=== PATIENT | male | born 1935 | race Caucasian/White ===

== ENCOUNTER → 2021-07-16 | Outpatient (REF) | payer MEDICARE ==
[2021-07-16 16:32] LABS: HEMATOCRIT 43.4 % (42.0-52.0); MEAN CORPUSCULAR HEMOGLOBIN 29.1 pg (27.0-33.0); MEAN CORPUSCULAR HGB CONC 32.3 g/dl (32.0-36.5); MEAN CORPUSCULAR VOLUME 90.2 fl (80.0-96.0); PLATELET COUNT, AUTOMATED 303 10^3/uL (150-450); RED BLOOD COUNT 4.81 10^6/uL (4.30-6.10); WHITE BLOOD COUNT 10.6 10^3/uL (4.0-10.0)
[2021-07-16 18:29] LABS: ALBUMIN 3.7 GM/DL (3.2-5.2); ALT/SGPT 21 U/L (12-78); BLOOD UREA NITROGEN 19 MG/DL (7-18); CALCIUM LEVEL 9.4 MG/DL (8.8-10.2); CARBON DIOXIDE LEVEL 30 MEQ/L (21-32); CHLORIDE LEVEL 107 MEQ/L (98-107); CHOLESTEROL LEVEL 109 MG/DL (<200); CHOLESTEROL RISK RATIO 1.981 (<5); CREATININE FOR GFR 0.68 MG/DL (0.70-1.30); GLOMERULAR FILTRATION RATE > 60.0 (>35); GLUCOSE, FASTING 79 MG/DL (70-100); HDL CHOLESTEROL 55 MG/DL (>40); LDL CHOLESTEROL 39 MG/DL (<100); NON-HDL-C 54 MG/DL; POTASSIUM SERUM 4.6 MEQ/L (3.5-5.1); PREALBUMIN 17.9 MG/DL (20.0-40.0); SODIUM LEVEL 142 MEQ/L (136-145); TOTAL PROTEIN 6.9 GM/DL (6.4-8.2); TRIGLYCERIDES LEVEL 73 MG/DL (<150)
== END ==
LOC: M LABDRWCV 16:00
DX: E78.00 Pure hypercholesterolemia, unspecified (principal); R63.4 Abnormal weight loss

== ENCOUNTER 2022-04-03 19:41 | Inpatient (IN) | payer MEDICARE ==
[~2022-04-03] VITALS: Ht 177.8 cm; Wt 65.8 kg
[2022-04-03 20:45] LABS: BASO % 0.2 % (0.0-1.0); EOS # 0.1 10^3/uL (0.0-0.5); EOS % 0.3 % (0.0-3.0); HEMATOCRIT 37.3 % (42.0-52.0); HEMOGLOBIN 11.9 g/dl (13.5-17.5); LYMPH % 5.3 % (24.0-44.0); MEAN CORPUSCULAR HEMOGLOBIN 29.4 pg (27.0-33.0); MEAN CORPUSCULAR HGB CONC 31.9 g/dl (32.0-36.5); MEAN CORPUSCULAR VOLUME 92.1 fl (80.0-96.0); MONO # 1.4 10^3/uL (0.0-0.8); MONO % 7.7 % (2.0-8.0); NEUTROPHILS # 15.7 10^3/uL (1.5-8.5); NEUTROPHILS % 85.8 % (36.0-66.0); PLATELET COUNT, AUTOMATED 293 10^3/uL (150-450); RED BLOOD COUNT 4.05 10^6/uL (4.30-6.10); WHITE BLOOD COUNT 18.3 10^3/uL (4.0-10.0)
[2022-04-03] MEDS: SENNA 8.6 MG TAB (SENOKOT) PO SCH (21:00)
[2022-04-03] MEDS: SINEMET**CR** 25/100 TABCR PO SCH (21:00)
[2022-04-03 21:08] LABS: MAGNESIUM LEVEL 1.9 MG/DL (1.8-2.4)
[2022-04-03 21:09] LABS: BLOOD UREA NITROGEN 34 MG/DL (9-23); CALCIUM LEVEL 8.6 MG/DL (8.3-10.6); CARBON DIOXIDE LEVEL 27 MMOL/L (20-31); CHLORIDE LEVEL 105 MMOL/L (98-107); CREATININE FOR GFR 0.58 MG/DL (0.70-1.30); GLOMERULAR FILTRATION RATE > 60.0 (>35); GLUCOSE, FASTING 109 MG/DL (74-106); POTASSIUM SERUM 4.2 MMOL/L (3.5-5.1); SODIUM LEVEL 141 MMOL/L (136-145)
[2022-04-03 21:11] LABS: FREE T4 1.13 NG/DL (0.89-1.76); THYROID STIMULATING HORMONE 1.436 uIU/ML (0.55-4.78)
[2022-04-03 21:26] LABS: RSV AMPLIFICATION NEGATIVE (NEGATIVE)
[2022-04-03] MEDS ORDERED: CARB1TAB PO (22:48)
[2022-04-03] MEDS ORDERED: LANS30CA93 PO (22:48)
[2022-04-03] MEDS ORDERED: PARO5TAB PO (22:48)
[2022-04-03] MEDS ORDERED: SENN-83 PO (22:48)
[2022-04-03] MEDS ORDERED: CARB25TA9 PO (22:48)
[2022-04-03] MEDS ORDERED: ATOR40TA75 PO (22:48)
[2022-04-03] MEDS ORDERED: ASPI81TA27 PO (22:48)
[2022-04-03] MEDS ORDERED: HOME MED LIST COMPLETE! XX SCH (22:50)
[2022-04-04] VITALS (8 sets, daily range): BP systolic 109–166; BP diastolic 58–88
[2022-04-04] MEDS ORDERED: NS 1,000 ML IV SCH (00:35)
[2022-04-04] MEDS ORDERED: HYDROMORPHONE HCL 0.5 MG/ 0.5 ML SYRINGE IV PRN (00:35)
[2022-04-04] MEDS ORDERED: NS 500 ML IV ONE (00:35)
[2022-04-04 07:31] LABS: APPEARANCE, URINE MANUAL CLEAR (CLEAR); COLOR, URINE MANUAL DK YELLOW (YELLOW); GLUCOSE, URINE (UA) MANUAL NEGATIVE (NEGATIVE); KETONE, URINE MANUAL 1+ mg/dL (NEGATIVE); PROTEIN, URINE MANUAL TRACE mg/dL (NEGATIVE)
[2022-04-04 07:32] LABS: BILIRUBIN, URINE MANUAL NEGATIVE (NEGATIVE); NITRITE, URINE MANUAL NEGATIVE (NEGATIVE); UROBILINOGEN, URINE MANUAL 1 MG mg/dl (NORMAL)
[2022-04-04 07:35] LABS: BLOOD URINE MANUAL TRACE (NEGATIVE); PH,URINE MAN 6.5 UNITS (5.0 - 7.0)
[2022-04-04 07:36] LABS: LEUKOCYTE ESTERASE, URINE MAN TRACE (NEGATIVE)
[2022-04-04] MEDS: SINEMET 25-100 MG TAB PO SCH ×4 (08:00→18:00)
[2022-04-04 08:04] LABS: SQUAMOUS EPITHELIAL CELL URINE SMALL AMOUNT /hpf (SMALL AMT)
[2022-04-04 08:05] LABS: AMORPHOUS SEDIMENT, URINE SMALL AMOUNT (NEGATIVE); BACTERIA, URINE NONE SEEN; MUCUS, URINE SMALL AMOUNT (NEGATIVE)
[2022-04-04 08:06] LABS: HYALINE CAST, URINE NONE SEEN /lpf (0-1)
[2022-04-04] MEDS: PARoxetine 10MG TABLET PO SCH ×2 (08:43→09:20)
[2022-04-04] MEDS: HEPARIN SOD (PORCINE) 5000UNITS/ML 1ML VIAL/SYRINGE SC SCH ×2 (08:43→08:54)
[2022-04-04] MEDS: PANTOPRAZOLE 40MG TAB (PROTONIX) PO SCH ×2 (08:43→09:20)
[2022-04-04 09:31] LABS: HEMATOCRIT 38.6 % (42.0-52.0); HEMOGLOBIN 12.1 g/dl (13.5-17.5); MEAN CORPUSCULAR HEMOGLOBIN 28.7 pg (27.0-33.0); MEAN CORPUSCULAR HGB CONC 31.3 g/dl (32.0-36.5); MEAN CORPUSCULAR VOLUME 91.7 fl (80.0-96.0); PLATELET COUNT, AUTOMATED 281 10^3/uL (150-450); RED BLOOD COUNT 4.21 10^6/uL (4.30-6.10); WHITE BLOOD COUNT 15.7 10^3/uL (4.0-10.0)
[2022-04-04 09:51] LABS: ALBUMIN 2.8 G/DL (3.2-5.2); ALKALINE PHOSPHATASE 89 U/L (46-116); ALT/SGPT 23 U/L (7.0-40); AST/SGOT 24 U/L (<34); BILIRUBIN,TOTAL 1.2 MG/DL (0.3-1.2); BLOOD UREA NITROGEN 28 MG/DL (9-23); CALCIUM LEVEL 8.6 MG/DL (8.3-10.6); CARBON DIOXIDE LEVEL 29 MMOL/L (20-31); CHLORIDE LEVEL 108 MMOL/L (98-107); CREATININE FOR GFR 0.52 MG/DL (0.70-1.30); GLOMERULAR FILTRATION RATE > 60.0 (>35); GLUCOSE, FASTING 82 MG/DL (74-106); POTASSIUM SERUM 4.1 MMOL/L (3.5-5.1); SODIUM LEVEL 143 MMOL/L (136-145); TOTAL PROTEIN 6.2 G/DL (5.7-8.2)
[2022-04-04] MEDS ORDERED: D5W/0.45% SODIUM CHLORIDE 1,000 ML IV SCH (11:35)
[2022-04-04] MEDS ORDERED: ROPIVA 125MG/EPINEPH 0.25MG/CLONID 40MCG/KETOR 15MG IN NS 50ML SYRINGE PA ONE (14:00)
[2022-04-04] MEDS ORDERED: ceFAZolin 2 GM/D5W 50 ML IV BAG As Ordered ONE (14:57)
[2022-04-04] MEDS ORDERED: TRANEXAMIC ACID 100 MG/ML 10ML VIAL As Ordered ONE (14:57)
[2022-04-04] MEDS ORDERED: MIDAZOLAM INJ 2MG/2ML VIAL As Ordered ONE (15:51)
[2022-04-04] MEDS ORDERED: KETAMINE HCL 200MG/20ML VIAL As Ordered ONE (15:51)
[2022-04-04] MEDS ORDERED: propofoL 200 MG/20 ML VIAL As Ordered ONE ×2 (15:51→17:38)
[2022-04-04] MEDS ORDERED: ACETAMINOPHEN 1000MG 100ML IV BAG As Ordered ONE (16:02)
[2022-04-04] MEDS ORDERED: ONDANSETRON 4MG 2ML VIAL As Ordered ONE (16:02)
[2022-04-04] MEDS ORDERED: PHENYLephrine 500MCG 5ML (100MCG/ML) SYRINGE As Ordered ONE (16:05)
[2022-04-04] MEDS ORDERED: LR 1,000 ML IV SCH ×2 (18:20)
[2022-04-04] MEDS ORDERED: traMADol 50 MG TAB PO PRN (18:20)
[2022-04-04] MEDS ORDERED: fentaNYL 100 MCG/2 ML INJECTION IV PRN (18:20)
[2022-04-04] MEDS ORDERED: ONDANSETRON 4MG 2ML VIAL IV PRN (18:20)
[2022-04-04] MEDS ORDERED: oxyCODONE 5MG TAB PO PRN (18:20)
[2022-04-04] MEDS: ASPIRIN 81MG ENTERIC TABLET PO SCH (20:40)
[2022-04-04] MEDS: SENNA 8.6 MG TAB (SENOKOT) PO SCH (20:40)
[2022-04-04] MEDS: DOCUSATE SODIUM 100MG CAPSULE PO SCH (20:40)
[2022-04-04] MEDS: ATORVASTATIN 20 MG TAB PO SCH (20:41)
[2022-04-04] MEDS: SINEMET**CR** 25/100 TABCR PO SCH (20:43)
[2022-04-05] VITALS (14 sets, daily range): BP systolic 90–128; BP diastolic 44–71
[2022-04-05] MEDS ORDERED: ceFAZolin SOD 2 GM in IV 1 EA IV SCH ×2
[2022-04-05] MEDS: ACETAMINOPHEN TAB 650MG DOSE (2X325MG) PO SCH ×4 (00:10→17:07)
[2022-04-05] MEDS ORDERED: IPRATROPIUM 0.5MG/ALBUTEROL 2.5MG INH SOL UD 3ML (DUONEB) NEB PRN (00:45)
[2022-04-05 01:20] LABS: VENOUS BASE EXCESS 0.6 (-2.0-2.0); VENOUS O2 SATURATION 98.4 % (60.0-80.0); VENOUS PH 7.341 UNITS (7.330-7.430); VENOUS TOTAL CO2 28.5 MEQ/L (24.0-28.0)
[2022-04-05] MEDS ORDERED: SODIUM CHLORIDE 0.9% 1000ML IV ONE (02:20)
[2022-04-05] MEDS ORDERED: NS 1,000 ML IV SCH (02:20)
[2022-04-05] MEDS ORDERED: DOXYCYCLINE HYCLATE 100 MG in D5W MINI-BAG PLUS 100 ML IV SCH (03:00)
[2022-04-05 06:34] LABS: HEMATOCRIT 30.3 % (42.0-52.0); MEAN CORPUSCULAR HEMOGLOBIN 29.3 pg (27.0-33.0); MEAN CORPUSCULAR HGB CONC 31.4 g/dl (32.0-36.5); MEAN CORPUSCULAR VOLUME 93.5 fl (80.0-96.0); PLATELET COUNT, AUTOMATED 227 10^3/uL (150-450); RED BLOOD COUNT 3.24 10^6/uL (4.30-6.10); WHITE BLOOD COUNT 12.9 10^3/uL (4.0-10.0)
[2022-04-05 06:36] LABS: HEMOGLOBIN 9.5 g/dl (13.5-17.5)
[2022-04-05 06:54] LABS: BLOOD UREA NITROGEN 25 MG/DL (9-23); CARBON DIOXIDE LEVEL 29 MMOL/L (20-31); CHLORIDE LEVEL 106 MMOL/L (98-107); CREATININE FOR GFR 0.56 MG/DL (0.70-1.30); GLOMERULAR FILTRATION RATE > 60.0 (>35); GLUCOSE, FASTING 80 MG/DL (74-106); POTASSIUM SERUM 4.1 MMOL/L (3.5-5.1); SODIUM LEVEL 140 MMOL/L (136-145)
[2022-04-05] MEDS: IPRATROPIUM 0.5MG/ALBUTEROL 2.5MG INH SOL UD 3ML (DUONEB) NEB SCH ×3 (08:00→21:08)
[2022-04-05] MEDS ORDERED: cefTRIAXone SOD 1 GM in D5W MINI-BAG PLUS 50 ML IV SCH ×2 (08:00→12:00)
[2022-04-05] MEDS ORDERED: DICLOFENAC EPOLAMINE 1.3% PATCH TOP SCH (09:00)
[2022-04-05] MEDS: ASPIRIN 81MG ENTERIC TABLET PO SCH ×2 (09:23→21:07)
[2022-04-05] MEDS: DOCUSATE SODIUM 100MG CAPSULE PO SCH ×2 (09:23→21:08)
[2022-04-05] MEDS: PARoxetine 10MG TABLET PO SCH (09:23)
[2022-04-05] MEDS: PANTOPRAZOLE 40MG TAB (PROTONIX) PO SCH (09:23)
[2022-04-05] MEDS: ASCORBIC ACID 500 MG TAB PO SCH (09:23)
[2022-04-05] MEDS: SINEMET 25-100 MG TAB PO SCH ×3 (09:23→17:06)
[2022-04-05 10:26] LABS: IRON (FE) 13 UG/DL (65-175); PERCENT SATURATION 6.8 % (19.7-50.0); TOTAL IRON BINDING CAPACITY 190 UG/DL (250-425)
[2022-04-05 10:28] LABS: VITAMIN B12 LEVEL 600 PG/ML (211-911)
[2022-04-05 10:29] LABS: FERRITIN 241.1 NG/ML (10.5-307.3); FOLATE 17.8 NG/ML (>5.4)
[2022-04-05] MEDS: LIDOCAINE 5% (LIDODERM) PATCH TD SCH (10:59)
[2022-04-05] MEDS: MIRALAX *UNIT DOSE* 17GM PACKET PO SCH (10:59)
[2022-04-05] MEDS: TIOTROPIUM INHALER/CAPSULE (SPIRIVA) INH SCH (11:35)
[2022-04-05] MEDS: predniSONE 50 MG TAB PO SCH (13:08)
[2022-04-05] MEDS ORDERED: LR 500 ML IV ONE (18:45)
[2022-04-05] MEDS: LR 500 ML IV SCH (19:50)
[2022-04-05] MEDS ORDERED: FERRIC CARBOXYMALTOSE INJ 750 MG, VIAL MATE ADAPTER 1 EACH in NS 250 ML IV ONE (20:00)
[2022-04-05] MEDS ORDERED: DOXYCYCLINE HYCLATE 100MG TABLET PO SCH (21:00)
[2022-04-05] MEDS: ATORVASTATIN 20 MG TAB PO SCH (21:08)
[2022-04-05] MEDS: SENNA 8.6 MG TAB (SENOKOT) PO SCH (21:08)
[2022-04-05] MEDS: DICLOFENAC EPOLAMINE 1.3% PATCH TOP SCH (21:08)
[2022-04-05] MEDS: guaiFENesin SYRUP 200MG 10ML UDC PO PRN (21:08)
[2022-04-05] MEDS: SINEMET**CR** 25/100 TABCR PO SCH (21:08)
[2022-04-06] VITALS: BP 118/61
[2022-04-06] MEDS: ACETAMINOPHEN TAB 650MG DOSE (2X325MG) PO SCH ×4 (01:39→17:06)
[2022-04-06] MEDS: LR 500 ML IV SCH ×2 (01:39→05:47)
[2022-04-06] MEDS: IPRATROPIUM 0.5MG/ALBUTEROL 2.5MG INH SOL UD 3ML (DUONEB) NEB SCH ×4 (02:53→20:00)
[2022-04-06 04:00] VITALS: BP 127/67
[2022-04-06 06:24] LABS: HEMATOCRIT 27.2 % (42.0-52.0); HEMOGLOBIN 8.9 g/dl (13.5-17.5); MEAN CORPUSCULAR HEMOGLOBIN 29.7 pg (27.0-33.0); MEAN CORPUSCULAR HGB CONC 32.7 g/dl (32.0-36.5); MEAN CORPUSCULAR VOLUME 90.7 fl (80.0-96.0); PLATELET COUNT, AUTOMATED 209 10^3/uL (150-450); WHITE BLOOD COUNT 15.8 10^3/uL (4.0-10.0)
[2022-04-06 06:47] LABS: BLOOD UREA NITROGEN 15 MG/DL (9-23); CALCIUM LEVEL 8.5 MG/DL (8.3-10.6); CARBON DIOXIDE LEVEL 23 MMOL/L (20-31); CHLORIDE LEVEL 104 MMOL/L (98-107); CREATININE FOR GFR 0.47 MG/DL (0.70-1.30); GLOMERULAR FILTRATION RATE > 60.0 (>35); GLUCOSE, FASTING 131 MG/DL (74-106); POTASSIUM SERUM 4.3 MMOL/L (3.5-5.1); SODIUM LEVEL 138 MMOL/L (136-145)
[2022-04-06] MEDS: TIOTROPIUM INHALER/CAPSULE (SPIRIVA) INH SCH (07:23)
[2022-04-06] MEDS: LIDOCAINE 5% (LIDODERM) PATCH TD SCH (08:30)
[2022-04-06] MEDS: MIRALAX *UNIT DOSE* 17GM PACKET PO SCH (08:30)
[2022-04-06] MEDS: PARoxetine 10MG TABLET PO SCH (08:30)
[2022-04-06] MEDS: DOCUSATE SODIUM 100MG CAPSULE PO SCH ×2 (08:30→21:24)
[2022-04-06] MEDS: ASCORBIC ACID 500 MG TAB PO SCH (08:30)
[2022-04-06] MEDS: PANTOPRAZOLE 40MG TAB (PROTONIX) PO SCH (08:30)
[2022-04-06] MEDS: predniSONE 50 MG TAB PO SCH (08:30)
[2022-04-06] MEDS: ASPIRIN 81MG ENTERIC TABLET PO SCH ×2 (08:30→21:25)
[2022-04-06] MEDS: SINEMET 25-100 MG TAB PO SCH ×3 (08:31→17:06)
[2022-04-06 14:00] VITALS: BP 100/54
[2022-04-06] MEDS: POLYVINYL ALCOHOL OPHTH SOLN 15ML (LIQUITEARS) OU PRN ×2 (17:06→21:33)
[2022-04-06 20:00] VITALS: BP 126/62
[2022-04-06] MEDS: SENNA 8.6 MG TAB (SENOKOT) PO SCH (21:24)
[2022-04-06] MEDS: SINEMET**CR** 25/100 TABCR PO SCH (21:25)
[2022-04-06] MEDS: ATORVASTATIN 20 MG TAB PO SCH (21:25)
[2022-04-06] MEDS: DICLOFENAC EPOLAMINE 1.3% PATCH TOP SCH (21:25)
[2022-04-07] MEDS: IPRATROPIUM 0.5MG/ALBUTEROL 2.5MG INH SOL UD 3ML (DUONEB) NEB SCH ×4 (01:25→19:28)
[2022-04-07 06:00] VITALS: BP 126/81
[2022-04-07] MEDS: ACETAMINOPHEN TAB 650MG DOSE (2X325MG) PO SCH ×4 (06:00→17:47)
[2022-04-07 06:36] LABS: HEMATOCRIT 31.2 % (42.0-52.0); MEAN CORPUSCULAR HEMOGLOBIN 29.2 pg (27.0-33.0); MEAN CORPUSCULAR HGB CONC 32.1 g/dl (32.0-36.5); MEAN CORPUSCULAR VOLUME 91.2 fl (80.0-96.0); PLATELET COUNT, AUTOMATED 260 10^3/uL (150-450); RED BLOOD COUNT 3.42 10^6/uL (4.30-6.10); WHITE BLOOD COUNT 15.7 10^3/uL (4.0-10.0)
[2022-04-07 07:00] LABS: BLOOD UREA NITROGEN 12 MG/DL (9-23); CALCIUM LEVEL 8.5 MG/DL (8.3-10.6); CARBON DIOXIDE LEVEL 26 MMOL/L (20-31); CHLORIDE LEVEL 105 MMOL/L (98-107); CREATININE FOR GFR 0.46 MG/DL (0.70-1.30); GLOMERULAR FILTRATION RATE > 60.0 (>35); GLUCOSE, FASTING 76 MG/DL (74-106); SODIUM LEVEL 141 MMOL/L (136-145)
[2022-04-07] MEDS: TIOTROPIUM INHALER/CAPSULE (SPIRIVA) INH SCH (07:19)
[2022-04-07] MEDS: MIRALAX *UNIT DOSE* 17GM PACKET PO SCH (08:28)
[2022-04-07] MEDS: PANTOPRAZOLE 40MG TAB (PROTONIX) PO SCH (08:29)
[2022-04-07] MEDS: ASPIRIN 81MG ENTERIC TABLET PO SCH ×2 (08:29→21:07)
[2022-04-07] MEDS: ASCORBIC ACID 500 MG TAB PO SCH (08:29)
[2022-04-07] MEDS: LIDOCAINE 5% (LIDODERM) PATCH TD SCH (08:29)
[2022-04-07] MEDS: predniSONE 50 MG TAB PO SCH (08:29)
[2022-04-07] MEDS: SINEMET 25-100 MG TAB PO SCH ×3 (08:29→17:46)
[2022-04-07] MEDS: DOCUSATE SODIUM 100MG CAPSULE PO SCH ×2 (08:29→21:07)
[2022-04-07] MEDS: PARoxetine 10MG TABLET PO SCH (08:30)
[2022-04-07 13:00] VITALS: BP_SYST 102; BP_SYST 75; BP_SYST 92; BP_DIAS 51; BP_DIAS 55
[2022-04-07] MEDS: MIDODRINE 2.5 MG TAB PO SCH (17:46)
[2022-04-07] MEDS: ATORVASTATIN 20 MG TAB PO SCH (21:07)
[2022-04-07] MEDS: SENNA 8.6 MG TAB (SENOKOT) PO SCH (21:07)
[2022-04-07] MEDS: DICLOFENAC EPOLAMINE 1.3% PATCH TOP SCH (21:07)
[2022-04-07] MEDS: SINEMET**CR** 25/100 TABCR PO SCH (21:07)
[2022-04-07 21:19] VITALS: BP_SYST 112; BP_SYST 138; BP_DIAS 64; BP_DIAS 67; BP_DIAS 78
[2022-04-07 21:30] VITALS: BP 129/74
[2022-04-08] MEDS: IPRATROPIUM 0.5MG/ALBUTEROL 2.5MG INH SOL UD 3ML (DUONEB) NEB SCH ×4 (01:30→19:16)
[2022-04-08 05:00] VITALS: BP_SYST 117; BP_SYST 127; BP_SYST 128; BP_DIAS 63; BP_DIAS 66; BP_DIAS 75
[2022-04-08] MEDS: ACETAMINOPHEN TAB 650MG DOSE (2X325MG) PO SCH ×5 (05:08→23:01)
[2022-04-08 05:15] VITALS: BP 139/80
[2022-04-08 06:02] LABS: HEMATOCRIT 30.5 % (42.0-52.0); HEMOGLOBIN 9.9 g/dl (13.5-17.5); MEAN CORPUSCULAR HEMOGLOBIN 29.3 pg (27.0-33.0); MEAN CORPUSCULAR HGB CONC 32.5 g/dl (32.0-36.5); MEAN CORPUSCULAR VOLUME 90.2 fl (80.0-96.0); PLATELET COUNT, AUTOMATED 300 10^3/uL (150-450); RED BLOOD COUNT 3.38 10^6/uL (4.30-6.10); WHITE BLOOD COUNT 12.3 10^3/uL (4.0-10.0)
[2022-04-08 06:36] LABS: BLOOD UREA NITROGEN 10 MG/DL (9-23); CALCIUM LEVEL 8.7 MG/DL (8.3-10.6); CARBON DIOXIDE LEVEL 24 MMOL/L (20-31); CHLORIDE LEVEL 104 MMOL/L (98-107); CREATININE FOR GFR 0.48 MG/DL (0.70-1.30); GLOMERULAR FILTRATION RATE > 60.0 (>35); GLUCOSE, FASTING 65 MG/DL (74-106); POTASSIUM SERUM 3.8 MMOL/L (3.5-5.1); SODIUM LEVEL 140 MMOL/L (136-145)
[2022-04-08] MEDS: TIOTROPIUM INHALER/CAPSULE (SPIRIVA) INH SCH (07:26)
[2022-04-08] MEDS: LIDOCAINE 5% (LIDODERM) PATCH TD SCH (09:06)
[2022-04-08] MEDS: MIRALAX *UNIT DOSE* 17GM PACKET PO SCH (09:06)
[2022-04-08] MEDS: SINEMET 25-100 MG TAB PO SCH ×3 (09:06→17:07)
[2022-04-08] MEDS: PANTOPRAZOLE 40MG TAB (PROTONIX) PO SCH (09:06)
[2022-04-08] MEDS: PARoxetine 10MG TABLET PO SCH (09:06)
[2022-04-08] MEDS: predniSONE 50 MG TAB PO SCH (09:06)
[2022-04-08] MEDS: ASPIRIN 81MG ENTERIC TABLET PO SCH ×2 (09:06→20:25)
[2022-04-08] MEDS: MIDODRINE 2.5 MG TAB PO SCH ×2 (09:06→17:07)
[2022-04-08] MEDS: ASCORBIC ACID 500 MG TAB PO SCH (09:06)
[2022-04-08] MEDS: DOCUSATE SODIUM 100MG CAPSULE PO SCH ×2 (09:06→20:26)
[2022-04-08 14:46] VITALS: BP_SYST 110; BP_SYST 83; BP_SYST 92; BP_DIAS 53; BP_DIAS 75
[2022-04-08] MEDS: DICLOFENAC EPOLAMINE 1.3% PATCH TOP SCH (20:26)
[2022-04-08] MEDS: SENNA 8.6 MG TAB (SENOKOT) PO SCH (20:26)
[2022-04-08] MEDS: SINEMET**CR** 25/100 TABCR PO SCH (20:26)
[2022-04-08] MEDS: ATORVASTATIN 20 MG TAB PO SCH (20:26)
[2022-04-08 21:10] VITALS: BP 142/71
[2022-04-08 21:15] VITALS: BP_SYST 116; BP_SYST 142; BP_SYST 97; BP_DIAS 62; BP_DIAS 64; BP_DIAS 74
[2022-04-09] VITALS (7 sets, daily range): BP systolic 84–153; BP diastolic 58–81
[2022-04-09] MEDS: IPRATROPIUM 0.5MG/ALBUTEROL 2.5MG INH SOL UD 3ML (DUONEB) NEB SCH ×4 (01:51→19:15)
[2022-04-09] MEDS: ACETAMINOPHEN TAB 650MG DOSE (2X325MG) PO SCH ×3 (05:07→17:07)
[2022-04-09 06:06] LABS: HEMATOCRIT 32.9 % (42.0-52.0); HEMOGLOBIN 10.3 g/dl (13.5-17.5); MEAN CORPUSCULAR HEMOGLOBIN 28.7 pg (27.0-33.0); MEAN CORPUSCULAR HGB CONC 31.3 g/dl (32.0-36.5); MEAN CORPUSCULAR VOLUME 91.6 fl (80.0-96.0); PLATELET COUNT, AUTOMATED 332 10^3/uL (150-450); RED BLOOD COUNT 3.59 10^6/uL (4.30-6.10); WHITE BLOOD COUNT 10.8 10^3/uL (4.0-10.0)
[2022-04-09 06:32] LABS: BLOOD UREA NITROGEN 9 MG/DL (9-23); CALCIUM LEVEL 8.7 MG/DL (8.3-10.6); CARBON DIOXIDE LEVEL 26 MMOL/L (20-31); CHLORIDE LEVEL 103 MMOL/L (98-107); CREATININE FOR GFR 0.49 MG/DL (0.70-1.30); GLOMERULAR FILTRATION RATE > 60.0 (>35); GLUCOSE, FASTING 63 MG/DL (74-106); SODIUM LEVEL 140 MMOL/L (136-145)
[2022-04-09] MEDS: TIOTROPIUM INHALER/CAPSULE (SPIRIVA) INH SCH (07:33)
[2022-04-09] MEDS: LIDOCAINE 5% (LIDODERM) PATCH TD SCH (08:09)
[2022-04-09] MEDS: DOCUSATE SODIUM 100MG CAPSULE PO SCH ×2 (08:09→20:07)
[2022-04-09] MEDS: predniSONE 50 MG TAB PO SCH (08:09)
[2022-04-09] MEDS: SINEMET 25-100 MG TAB PO SCH ×3 (08:09→17:07)
[2022-04-09] MEDS: ASPIRIN 81MG ENTERIC TABLET PO SCH ×2 (08:09→20:07)
[2022-04-09] MEDS: MIDODRINE 2.5 MG TAB PO SCH ×3 (08:09→17:08)
[2022-04-09] MEDS: MIRALAX *UNIT DOSE* 17GM PACKET PO SCH (08:09)
[2022-04-09] MEDS: PARoxetine 10MG TABLET PO SCH (08:09)
[2022-04-09] MEDS: ASCORBIC ACID 500 MG TAB PO SCH (08:09)
[2022-04-09] MEDS: PANTOPRAZOLE 40MG TAB (PROTONIX) PO SCH (08:10)
[2022-04-09] MEDS: SINEMET**CR** 25/100 TABCR PO SCH (20:06)
[2022-04-09] MEDS: SENNA 8.6 MG TAB (SENOKOT) PO SCH (20:06)
[2022-04-09] MEDS: ATORVASTATIN 20 MG TAB PO SCH (20:07)
[2022-04-09] MEDS: DICLOFENAC EPOLAMINE 1.3% PATCH TOP SCH (20:07)
[2022-04-09 22:32] LABS: APPEARANCE, URINE MANUAL CLEAR (CLEAR); COLOR, URINE MANUAL YELLOW (YELLOW)
[2022-04-09 22:33] LABS: BILIRUBIN, URINE MANUAL NEGATIVE (NEGATIVE); BLOOD URINE MANUAL TRACE (NEGATIVE); GLUCOSE, URINE (UA) MANUAL NEGATIVE (NEGATIVE); KETONE, URINE MANUAL NEGATIVE (NEGATIVE); LEUKOCYTE ESTERASE, URINE MAN NEGATIVE (NEGATIVE); NITRITE, URINE MANUAL NEGATIVE (NEGATIVE); PROTEIN, URINE MANUAL NEGATIVE (NEGATIVE); UROBILINOGEN, URINE MANUAL 1 MG mg/dl (NORMAL)
[2022-04-09 22:46] LABS: BACTERIA, URINE NONE SEEN; HYALINE CAST, URINE NONE SEEN /lpf (0-1); SQUAMOUS EPITHELIAL CELL URINE NONE SEEN /hpf (SMALL AMT); WBC, URINE 0-1 /hpf (0-3)
[2022-04-10] VITALS (7 sets, daily range): BP systolic 90–128; BP diastolic 49–68
[2022-04-10] MEDS: IPRATROPIUM 0.5MG/ALBUTEROL 2.5MG INH SOL UD 3ML (DUONEB) NEB SCH ×4 (01:12→19:45)
[2022-04-10] MEDS: ACETAMINOPHEN TAB 650MG DOSE (2X325MG) PO SCH ×5 (01:16→23:52)
[2022-04-10 05:51] LABS: HEMATOCRIT 32.9 % (42.0-52.0); HEMOGLOBIN 10.4 g/dl (13.5-17.5); MEAN CORPUSCULAR HEMOGLOBIN 28.9 pg (27.0-33.0); MEAN CORPUSCULAR HGB CONC 31.6 g/dl (32.0-36.5); MEAN CORPUSCULAR VOLUME 91.4 fl (80.0-96.0); PLATELET COUNT, AUTOMATED 364 10^3/uL (150-450); WHITE BLOOD COUNT 13.1 10^3/uL (4.0-10.0)
[2022-04-10 06:30] LABS: BLOOD UREA NITROGEN 15 MG/DL (9-23); CALCIUM LEVEL 8.4 MG/DL (8.3-10.6); CARBON DIOXIDE LEVEL 29 MMOL/L (20-31); CHLORIDE LEVEL 104 MMOL/L (98-107); CREATININE FOR GFR 0.57 MG/DL (0.70-1.30); GLOMERULAR FILTRATION RATE > 60.0 (>35); GLUCOSE, FASTING 77 MG/DL (74-106); POTASSIUM SERUM 4.1 MMOL/L (3.5-5.1); SODIUM LEVEL 140 MMOL/L (136-145)
[2022-04-10] MEDS: TIOTROPIUM INHALER/CAPSULE (SPIRIVA) INH SCH (08:13)
[2022-04-10] MEDS: MIRALAX *UNIT DOSE* 17GM PACKET PO SCH (08:49)
[2022-04-10] MEDS: ASCORBIC ACID 500 MG TAB PO SCH (08:49)
[2022-04-10] MEDS: ASPIRIN 81MG ENTERIC TABLET PO SCH ×2 (08:49→20:47)
[2022-04-10] MEDS: DOCUSATE SODIUM 100MG CAPSULE PO SCH ×2 (08:50→20:47)
[2022-04-10] MEDS: PANTOPRAZOLE 40MG TAB (PROTONIX) PO SCH (08:50)
[2022-04-10] MEDS: PARoxetine 10MG TABLET PO SCH (08:50)
[2022-04-10] MEDS: MIDODRINE 2.5 MG TAB PO SCH ×3 (08:50→16:09)
[2022-04-10] MEDS: SINEMET 25-100 MG TAB PO SCH ×3 (08:51→18:33)
[2022-04-10] MEDS: LIDOCAINE 5% (LIDODERM) PATCH TD SCH (08:51)
[2022-04-10] MEDS ORDERED: E-Z-PAQUE 96% w/w SUSP 176GM BTL As Ordered ONE (09:40)
[2022-04-10] MEDS ORDERED: VARIBAR NECTAR 40% w/v 240ML SUSP BTL As Ordered ONE (09:40)
[2022-04-10] MEDS ORDERED: BARIUM SULFATE 700 MG TABLET (E-Z-DISK) As Ordered ONE (09:40)
[2022-04-10] MEDS ORDERED: VARIBAR PUDDING 40% w/v 230ML TUBE As Ordered ONE (09:40)
[2022-04-10] MEDS: guaiFENesin SYRUP 200MG 10ML UDC PO PRN (13:12)
[2022-04-10] MEDS: SENOKOT S TAB PO SCH ×2 (13:44→20:47)
[2022-04-10] MEDS: NS 1,000 ML IV SCH (16:10)
[2022-04-10] MEDS ORDERED: FLEET ENEMA PR PRN (19:50)
[2022-04-10] MEDS: SINEMET**CR** 25/100 TABCR PO SCH (20:47)
[2022-04-10] MEDS: ATORVASTATIN 20 MG TAB PO SCH (20:47)
[2022-04-10] MEDS: DICLOFENAC EPOLAMINE 1.3% PATCH TOP SCH (20:47)
[2022-04-11] MEDS: IPRATROPIUM 0.5MG/ALBUTEROL 2.5MG INH SOL UD 3ML (DUONEB) NEB SCH ×4 (02:41→19:51)
[2022-04-11] MEDS: ACETAMINOPHEN TAB 650MG DOSE (2X325MG) PO SCH ×3 (05:32→17:46)
[2022-04-11 06:00] VITALS: BP 105/60
[2022-04-11 06:10] LABS: HEMATOCRIT 34.2 % (42.0-52.0); HEMOGLOBIN 10.7 g/dl (13.5-17.5); MEAN CORPUSCULAR HEMOGLOBIN 29.4 pg (27.0-33.0); MEAN CORPUSCULAR HGB CONC 31.3 g/dl (32.0-36.5); PLATELET COUNT, AUTOMATED 378 10^3/uL (150-450); RED BLOOD COUNT 3.64 10^6/uL (4.30-6.10); WHITE BLOOD COUNT 16.2 10^3/uL (4.0-10.0)
[2022-04-11 06:43] LABS: MAGNESIUM LEVEL 1.8 MG/DL (1.8-2.4)
[2022-04-11 06:45] LABS: ALBUMIN 2.5 G/DL (3.2-5.2); ALKALINE PHOSPHATASE 100 U/L (46-116); ALT/SGPT 16 U/L (7.0-40); AST/SGOT 32 U/L (<34); BILIRUBIN,TOTAL 0.5 MG/DL (0.3-1.2); BLOOD UREA NITROGEN 21 MG/DL (9-23); CALCIUM LEVEL 8.4 MG/DL (8.3-10.6); CARBON DIOXIDE LEVEL 29 MMOL/L (20-31); CHLORIDE LEVEL 103 MMOL/L (98-107); CREATININE FOR GFR 0.49 MG/DL (0.70-1.30); GLOMERULAR FILTRATION RATE > 60.0 (>35); GLUCOSE, FASTING 75 MG/DL (74-106); POTASSIUM SERUM 4.4 MMOL/L (3.5-5.1); SODIUM LEVEL 138 MMOL/L (136-145); TOTAL PROTEIN 5.2 G/DL (5.7-8.2)
[2022-04-11] MEDS: TIOTROPIUM INHALER/CAPSULE (SPIRIVA) INH SCH (07:16)
[2022-04-11] MEDS: MIDODRINE 2.5 MG TAB PO SCH ×3 (07:39→15:04)
[2022-04-11] MEDS: SINEMET 25-100 MG TAB PO SCH ×3 (07:39→17:45)
[2022-04-11] MEDS: MIRALAX *UNIT DOSE* 17GM PACKET PO SCH (10:08)
[2022-04-11] MEDS: ASPIRIN 81MG ENTERIC TABLET PO SCH ×2 (10:08→21:54)
[2022-04-11] MEDS: DOCUSATE SODIUM 100MG CAPSULE PO SCH ×2 (10:08→21:53)
[2022-04-11] MEDS: PARoxetine 10MG TABLET PO SCH (10:08)
[2022-04-11] MEDS: ASCORBIC ACID 500 MG TAB PO SCH (10:08)
[2022-04-11] MEDS: PANTOPRAZOLE 40MG TAB (PROTONIX) PO SCH (10:08)
[2022-04-11] MEDS: SENOKOT S TAB PO SCH ×2 (10:08→21:54)
[2022-04-11] MEDS: NS 1,000 ML IV SCH (10:09)
[2022-04-11] MEDS: LIDOCAINE 5% (LIDODERM) PATCH TD SCH (10:09)
[2022-04-11 14:00] VITALS: BP 91/48
[2022-04-11] MEDS: MOXIFLOXACIN 400 MG TAB PO SCH (15:04)
[2022-04-11 20:00] VITALS: BP 136/63
[2022-04-11] MEDS: DICLOFENAC EPOLAMINE 1.3% PATCH TOP SCH (21:53)
[2022-04-11] MEDS: ATORVASTATIN 20 MG TAB PO SCH (21:53)
[2022-04-11] MEDS: SINEMET**CR** 25/100 TABCR PO SCH (21:54)
[2022-04-12] VITALS (7 sets, daily range): BP systolic 80–129; BP diastolic 47–72
[2022-04-12] MEDS: ACETAMINOPHEN TAB 650MG DOSE (2X325MG) PO SCH ×5 (00:23→23:58)
[2022-04-12] MEDS: IPRATROPIUM 0.5MG/ALBUTEROL 2.5MG INH SOL UD 3ML (DUONEB) NEB SCH ×4 (02:20→19:14)
[2022-04-12] MEDS: MOXIFLOXACIN 400 MG TAB PO SCH (05:38)
[2022-04-12] MEDS: NS 1,000 ML IV SCH (05:39)
[2022-04-12 06:05] LABS: BASO # 0.1 10^3/uL (0.0-0.2); BASO % 0.8 % (0.0-1.0); EOS # 0.2 10^3/uL (0.0-0.5); EOS % 1.4 % (0.0-3.0); HEMATOCRIT 34.4 % (42.0-52.0); HEMOGLOBIN 10.9 g/dl (13.5-17.5); LYMPH # 0.6 10^3/uL (1.5-5.0); LYMPH % 3.9 % (24.0-44.0); MEAN CORPUSCULAR HEMOGLOBIN 29.6 pg (27.0-33.0); MEAN CORPUSCULAR HGB CONC 31.7 g/dl (32.0-36.5); MEAN CORPUSCULAR VOLUME 93.5 fl (80.0-96.0); NEUTROPHILS # 11.6 10^3/uL (1.5-8.5); NEUTROPHILS % 81.9 % (36.0-66.0); PLATELET COUNT, AUTOMATED 349 10^3/uL (150-450); RED BLOOD COUNT 3.68 10^6/uL (4.30-6.10); WHITE BLOOD COUNT 14.2 10^3/uL (4.0-10.0)
[2022-04-12 06:33] LABS: MAGNESIUM LEVEL 1.8 MG/DL (1.8-2.4)
[2022-04-12 06:35] LABS: ALBUMIN 2.6 G/DL (3.2-5.2); ALKALINE PHOSPHATASE 92 U/L (46-116); ALT/SGPT 11 U/L (7.0-40); AST/SGOT 37 U/L (<34); BILIRUBIN,TOTAL 0.6 MG/DL (0.3-1.2); BLOOD UREA NITROGEN 19 MG/DL (9-23); CALCIUM LEVEL 8.3 MG/DL (8.3-10.6); CARBON DIOXIDE LEVEL 27 MMOL/L (20-31); CHLORIDE LEVEL 102 MMOL/L (98-107); CREATININE FOR GFR 0.57 MG/DL (0.70-1.30); GLOMERULAR FILTRATION RATE > 60.0 (>35); GLUCOSE, FASTING 68 MG/DL (74-106); POTASSIUM SERUM 4.3 MMOL/L (3.5-5.1); SODIUM LEVEL 136 MMOL/L (136-145); TOTAL PROTEIN 5.4 G/DL (5.7-8.2)
[2022-04-12] MEDS: TIOTROPIUM INHALER/CAPSULE (SPIRIVA) INH SCH (07:16)
[2022-04-12] MEDS: SENOKOT S TAB PO SCH ×2 (09:27→20:44)
[2022-04-12] MEDS: MIRALAX *UNIT DOSE* 17GM PACKET PO SCH (09:27)
[2022-04-12] MEDS: MIDODRINE 2.5 MG TAB PO SCH ×2 (09:27→13:27)
[2022-04-12] MEDS: PARoxetine 10MG TABLET PO SCH (09:27)
[2022-04-12] MEDS: SINEMET 25-100 MG TAB PO SCH ×3 (09:27→17:12)
[2022-04-12] MEDS: DOCUSATE SODIUM 100MG CAPSULE PO SCH ×2 (09:27→20:44)
[2022-04-12] MEDS: PANTOPRAZOLE 40MG TAB (PROTONIX) PO SCH (09:27)
[2022-04-12] MEDS: ASCORBIC ACID 500 MG TAB PO SCH (09:27)
[2022-04-12] MEDS: ASPIRIN 81MG ENTERIC TABLET PO SCH ×2 (09:27→20:45)
[2022-04-12] MEDS: LIDOCAINE 5% (LIDODERM) PATCH TD SCH (09:28)
[2022-04-12] MEDS: MIDODRINE 5 MG TAB PO SCH (17:13)
[2022-04-12] MEDS: ATORVASTATIN 20 MG TAB PO SCH (20:44)
[2022-04-12] MEDS: SINEMET**CR** 25/100 TABCR PO SCH (20:45)
[2022-04-12] MEDS: DICLOFENAC EPOLAMINE 1.3% PATCH TOP SCH (20:45)
[2022-04-13] MEDS: IPRATROPIUM 0.5MG/ALBUTEROL 2.5MG INH SOL UD 3ML (DUONEB) NEB SCH ×4 (01:10→20:04)
[2022-04-13] MEDS: MOXIFLOXACIN 400 MG TAB PO SCH (05:05)
[2022-04-13] MEDS: NS 1,000 ML IV SCH (05:05)
[2022-04-13] MEDS: ACETAMINOPHEN TAB 650MG DOSE (2X325MG) PO SCH ×3 (05:06→18:40)
[2022-04-13 05:16] VITALS: BP_SYST 103; BP_SYST 121; BP_SYST 89; BP_DIAS 53; BP_DIAS 60; BP_DIAS 61
[2022-04-13 05:25] VITALS: BP 122/57
[2022-04-13 06:07] LABS: BASO % 0.2 % (0.0-1.0); EOS % 0.1 % (0.0-3.0); HEMATOCRIT 29.3 % (42.0-52.0); HEMOGLOBIN 9.2 g/dl (13.5-17.5); LYMPH # 0.7 10^3/uL (1.5-5.0); MEAN CORPUSCULAR HEMOGLOBIN 29.9 pg (27.0-33.0); MEAN CORPUSCULAR HGB CONC 31.4 g/dl (32.0-36.5); MEAN CORPUSCULAR VOLUME 95.1 fl (80.0-96.0); MONO # 0.7 10^3/uL (0.0-0.8); MONO % 4.9 % (2.0-8.0); NEUTROPHILS # 11.9 10^3/uL (1.5-8.5); NEUTROPHILS % 85.8 % (36.0-66.0); PLATELET COUNT, AUTOMATED 275 10^3/uL (150-450); RED BLOOD COUNT 3.08 10^6/uL (4.30-6.10); WHITE BLOOD COUNT 13.9 10^3/uL (4.0-10.0)
[2022-04-13 06:32] LABS: MAGNESIUM LEVEL 1.9 MG/DL (1.8-2.4)
[2022-04-13 06:34] LABS: ALBUMIN 2.3 G/DL (3.2-5.2); ALKALINE PHOSPHATASE 79 U/L (46-116); ALT/SGPT 44 U/L (7.0-40); AST/SGOT 111 U/L (<34); BILIRUBIN,TOTAL 0.7 MG/DL (0.3-1.2); BLOOD UREA NITROGEN 22 MG/DL (9-23); CARBON DIOXIDE LEVEL 27 MMOL/L (20-31); CHLORIDE LEVEL 105 MMOL/L (98-107); GLOMERULAR FILTRATION RATE > 60.0 (>35); GLUCOSE, FASTING 77 MG/DL (74-106); POTASSIUM SERUM 4.5 MMOL/L (3.5-5.1); SODIUM LEVEL 139 MMOL/L (136-145); TOTAL PROTEIN 4.9 G/DL (5.7-8.2)
[2022-04-13] MEDS: TIOTROPIUM INHALER/CAPSULE (SPIRIVA) INH SCH (07:20)
[2022-04-13] MEDS: SINEMET 25-100 MG TAB PO SCH ×3 (08:33→18:39)
[2022-04-13] MEDS: guaiFENesin SYRUP 200MG 10ML UDC PO SCH ×4 (08:34→18:46)
[2022-04-13] MEDS: ASPIRIN 81MG ENTERIC TABLET PO SCH ×2 (08:34→21:48)
[2022-04-13] MEDS: MIDODRINE 5 MG TAB PO SCH ×3 (08:34→16:00)
[2022-04-13] MEDS: PANTOPRAZOLE 40MG TAB (PROTONIX) PO SCH (08:34)
[2022-04-13] MEDS: SENOKOT S TAB PO SCH ×2 (08:34→21:49)
[2022-04-13] MEDS: DOCUSATE SODIUM 100MG CAPSULE PO SCH ×2 (08:34→21:49)
[2022-04-13] MEDS: ASCORBIC ACID 500 MG TAB PO SCH (08:34)
[2022-04-13] MEDS: PARoxetine 10MG TABLET PO SCH (08:34)
[2022-04-13] MEDS: MIRALAX *UNIT DOSE* 17GM PACKET PO SCH (08:35)
[2022-04-13] MEDS: LIDOCAINE 5% (LIDODERM) PATCH TD SCH (08:35)
[2022-04-13 12:00] VITALS: BP_SYST 103; BP_SYST 118; BP_SYST 91; BP_DIAS 55; BP_DIAS 62; BP_DIAS 66
[2022-04-13 14:00] VITALS: BP 103/51
[2022-04-13] MEDS: SINEMET**CR** 25/100 TABCR PO SCH (21:48)
[2022-04-13] MEDS: DICLOFENAC EPOLAMINE 1.3% PATCH TOP SCH (21:48)
[2022-04-13] MEDS: ATORVASTATIN 20 MG TAB PO SCH (21:49)
[2022-04-13 22:00] VITALS: BP 129/65
[2022-04-13 22:06] VITALS: BP_SYST 104; BP_SYST 112; BP_SYST 129; BP_DIAS 61; BP_DIAS 63; BP_DIAS 64
[2022-04-14] VITALS (11 sets, daily range): BP systolic 97–145; BP diastolic 59–83; O2SAT 97–100
[2022-04-14] MEDS: NS 1,000 ML IV SCH ×2 (00:38→22:45)
[2022-04-14] MEDS: ACETAMINOPHEN TAB 650MG DOSE (2X325MG) PO SCH ×4 (00:38→17:02)
[2022-04-14] MEDS: IPRATROPIUM 0.5MG/ALBUTEROL 2.5MG INH SOL UD 3ML (DUONEB) NEB SCH ×4 (01:52→18:04)
[2022-04-14] MEDS: MOXIFLOXACIN 400 MG TAB PO SCH (05:19)
[2022-04-14] MEDS: guaiFENesin SYRUP 200MG 10ML UDC PO SCH ×3 (05:20→17:02)
[2022-04-14] MEDS: TIOTROPIUM INHALER/CAPSULE (SPIRIVA) INH SCH (07:11)
[2022-04-14 07:59] LABS: HEMATOCRIT 26.8 % (42.0-52.0); HEMOGLOBIN 8.6 g/dl (13.5-17.5); MEAN CORPUSCULAR HEMOGLOBIN 29.7 pg (27.0-33.0); MEAN CORPUSCULAR HGB CONC 32.1 g/dl (32.0-36.5); MEAN CORPUSCULAR VOLUME 92.4 fl (80.0-96.0); PLATELET COUNT, AUTOMATED 252 10^3/uL (150-450); WHITE BLOOD COUNT 11.7 10^3/uL (4.0-10.0)
[2022-04-14 08:27] LABS: MAGNESIUM LEVEL 1.8 MG/DL (1.8-2.4)
[2022-04-14 08:29] LABS: ALBUMIN 2.2 G/DL (3.2-5.2); ALKALINE PHOSPHATASE 84 U/L (46-116); ALT/SGPT 67 U/L (7.0-40); AST/SGOT 178 U/L (<34); BILIRUBIN,TOTAL 0.7 MG/DL (0.3-1.2); BLOOD UREA NITROGEN 27 MG/DL (9-23); CALCIUM LEVEL 7.8 MG/DL (8.3-10.6); CARBON DIOXIDE LEVEL 25 MMOL/L (20-31); CHLORIDE LEVEL 106 MMOL/L (98-107); CORTISOL AM 29.5 UG/DL (4.3-22.4); CREATININE FOR GFR 0.51 MG/DL (0.70-1.30); GLOMERULAR FILTRATION RATE > 60.0 (>35); GLUCOSE, FASTING 91 MG/DL (74-106); POTASSIUM SERUM 3.9 MMOL/L (3.5-5.1); SODIUM LEVEL 138 MMOL/L (136-145); TOTAL PROTEIN 4.9 G/DL (5.7-8.2)
[2022-04-14] MEDS: MIRALAX *UNIT DOSE* 17GM PACKET PO SCH (08:53)
[2022-04-14] MEDS: ASPIRIN 81MG CHEW TABLET PO SCH ×2 (08:54→21:00)
[2022-04-14] MEDS: PANTOPRAZOLE 40MG TAB (PROTONIX) PO SCH (08:54)
[2022-04-14] MEDS: LIDOCAINE 5% (LIDODERM) PATCH TD SCH (08:54)
[2022-04-14] MEDS: ASCORBIC ACID 500 MG TAB PO SCH (08:54)
[2022-04-14] MEDS: MIDODRINE 5 MG TAB PO SCH ×3 (08:54→16:57)
[2022-04-14] MEDS: SINEMET 25-100 MG TAB PO SCH ×3 (08:54→17:02)
[2022-04-14] MEDS: SENOKOT S TAB PO SCH ×2 (08:54→21:00)
[2022-04-14] MEDS: DOCUSATE SODIUM 100MG CAPSULE PO SCH ×2 (08:54→21:00)
[2022-04-14] MEDS: PARoxetine 10MG TABLET PO SCH (08:54)
[2022-04-14 09:50] LABS: ATYPICAL LYMPH 2 % (0-5); LYMPHOCYTES 1 % (16-44); METAMYELOCYTES 1 % (0-0); MONOCYTES 4 % (0-5); MYELOCYTES 3 % (0-0); NEUTROPHILS 79 % (28-66); PROMYELOCYTES 1 % (0-0)
[2022-04-14 10:01] LABS: ANISOCYTOSIS 1+
[2022-04-14 10:02] LABS: PLATELET ESTIMATE NORMAL (NORMAL)
[2022-04-14] MEDS ORDERED: SODIUM CHLORIDE 0.9% 1000ML IV ONE (20:25)
[2022-04-14 20:37] LABS: BASO # 0.1 10^3/uL (0.0-0.2); BASO % 0.3 % (0.0-1.0); HEMOGLOBIN 9.9 g/dl (13.5-17.5); LYMPH # 1.1 10^3/uL (1.5-5.0); LYMPH % 4.6 % (24.0-44.0); MEAN CORPUSCULAR HEMOGLOBIN 29.6 pg (27.0-33.0); MEAN CORPUSCULAR HGB CONC 30.9 g/dl (32.0-36.5); MEAN CORPUSCULAR VOLUME 95.8 fl (80.0-96.0); MONO # 1.1 10^3/uL (0.0-0.8); MONO % 4.8 % (2.0-8.0); NEUTROPHILS # 20.7 10^3/uL (1.5-8.5); NEUTROPHILS % 86.9 % (36.0-66.0); RED BLOOD COUNT 3.34 10^6/uL (4.30-6.10); WHITE BLOOD COUNT 23.8 10^3/uL (4.0-10.0)
[2022-04-14 20:38] LABS: PLATELET COUNT, AUTOMATED 381 10^3/uL (150-450)
[2022-04-14] MEDS ORDERED: SODIUM CHLORIDE 0.9% 1000ML IV SCH (21:00)
[2022-04-14] MEDS: ATORVASTATIN 20 MG TAB PO SCH (21:00)
[2022-04-14] MEDS: SINEMET**CR** 25/100 TABCR PO SCH (21:00)
[2022-04-14 21:09] LABS: MAGNESIUM LEVEL 2.1 MG/DL (1.8-2.4)
[2022-04-14 21:12] LABS: ALBUMIN 2.7 G/DL (3.2-5.2); ALKALINE PHOSPHATASE 100 U/L (46-116); ALT/SGPT 44 U/L (7.0-40); AST/SGOT 274 U/L (<34); BLOOD UREA NITROGEN 31 MG/DL (9-23); CALCIUM LEVEL 8.1 MG/DL (8.3-10.6); CARBON DIOXIDE LEVEL 22 MMOL/L (20-31); CHLORIDE LEVEL 102 MMOL/L (98-107); GLOMERULAR FILTRATION RATE > 60.0 (>35); GLUCOSE, FASTING 137 MG/DL (74-106); POTASSIUM SERUM 4.5 MMOL/L (3.5-5.1); SODIUM LEVEL 138 MMOL/L (136-145); TOTAL PROTEIN 5.8 G/DL (5.7-8.2)
[2022-04-14 21:25] LABS: ABG BASE EXCESS -5.6 (-2.0-2.0); ABG HCO3 20.2 MEQ/L (22.0-26.0); ABG O2 SATURATION 99.4 % (95.0-99.0); ABG PARTIAL PRESSURE CO2 40.6 mmHg (35.0-45.0); ABG PARTIAL PRESSURE O2 207.9 mmHg (75.0-100.0); ABG STANDARD HCO3 19.9 MEQ/L (22.0-26.0); ABG TOTAL CO2 21.5 MEQ/L (23.0-31.0); ABG pH (ARTERIAL) 7.315 UNITS (7.350-7.450)
[2022-04-14] MEDS: CEFEPIME HCL 2 GM in D5W MINI-BAG PLUS 50 ML IV SCH (21:26)
[2022-04-14 21:49] LABS: APPEARANCE, URINE MANUAL CLOUDY (CLEAR); COLOR, URINE MANUAL RED (YELLOW); GLUCOSE, URINE (UA) MANUAL NEGATIVE (NEGATIVE); PROTEIN, URINE MANUAL 2+ mg/dL (NEGATIVE); SPECIFIC GRAVITY,URINE MANUAL 1.025 (1.002-1.035)
[2022-04-14 21:50] LABS: BILIRUBIN, URINE MANUAL NEGATIVE (NEGATIVE); BLOOD URINE MANUAL POSITIVE (NEGATIVE); KETONE, URINE MANUAL NEGATIVE (NEGATIVE); LEUKOCYTE ESTERASE, URINE MAN POSITIVE (NEGATIVE); NITRITE, URINE MANUAL NEGATIVE (NEGATIVE); UROBILINOGEN, URINE MANUAL NORMAL (NORMAL)
[2022-04-14 22:03] LABS: RBC, URINE TNTC /hpf (0-3)
[2022-04-14 22:04] LABS: BACTERIA, URINE NONE SEEN; HYALINE CAST, URINE NONE SEEN /lpf (0-1); SQUAMOUS EPITHELIAL CELL URINE NONE SEEN /hpf (SMALL AMT)
[2022-04-14] MEDS: metroNIDAZOLE 500 MG in IV 1 EA IV SCH (22:09)
[2022-04-15] VITALS (14 sets, daily range): BP systolic 94–117; BP diastolic 51–58; O2SAT 91–99
[2022-04-15] MEDS: IPRATROPIUM 0.5MG/ALBUTEROL 2.5MG INH SOL UD 3ML (DUONEB) NEB SCH ×4 (01:37→19:36)
[2022-04-15 04:52] LABS: HEMATOCRIT 32.1 % (42.0-52.0); HEMOGLOBIN 9.9 g/dl (13.5-17.5); MEAN CORPUSCULAR HEMOGLOBIN 28.9 pg (27.0-33.0); MEAN CORPUSCULAR HGB CONC 30.8 g/dl (32.0-36.5); MEAN CORPUSCULAR VOLUME 93.9 fl (80.0-96.0); PLATELET COUNT, AUTOMATED 238 10^3/uL (150-450); RED BLOOD COUNT 3.42 10^6/uL (4.30-6.10); WHITE BLOOD COUNT 4.8 10^3/uL (4.0-10.0)
[2022-04-15 05:16] LABS: MAGNESIUM LEVEL 1.8 MG/DL (1.8-2.4)
[2022-04-15] MEDS: guaiFENesin SYRUP 200MG 10ML UDC PO SCH ×5 (05:17→23:26)
[2022-04-15] MEDS: MOXIFLOXACIN 400 MG TAB PO SCH (05:17)
[2022-04-15 05:19] LABS: ALBUMIN 2.3 G/DL (3.2-5.2); ALKALINE PHOSPHATASE 84 U/L (46-116); ALT/SGPT 95 U/L (7.0-40); AST/SGOT 361 U/L (<34); BILIRUBIN,TOTAL 0.8 MG/DL (0.3-1.2); BLOOD UREA NITROGEN 38 MG/DL (9-23); CALCIUM LEVEL 7.6 MG/DL (8.3-10.6); CARBON DIOXIDE LEVEL 21 MMOL/L (20-31); CHLORIDE LEVEL 108 MMOL/L (98-107); CREATININE FOR GFR 0.77 MG/DL (0.70-1.30); GLOMERULAR FILTRATION RATE > 60.0 (>35); GLUCOSE, FASTING 113 MG/DL (74-106); POTASSIUM SERUM 4.6 MMOL/L (3.5-5.1); SODIUM LEVEL 140 MMOL/L (136-145)
[2022-04-15] MEDS: metroNIDAZOLE 500 MG in IV 1 EA IV SCH ×3 (05:47→21:05)
[2022-04-15] MEDS: DICLOFENAC EPOLAMINE 1.3% PATCH TOP SCH ×2 (05:47→21:06)
[2022-04-15 05:53] LABS: BLAST CELLS 2 % (0-0); LYMPHOCYTES 7 % (16-44); METAMYELOCYTES 8 % (0-0); MONOCYTES 2 % (0-5); MYELOCYTES 10 % (0-0); NEUTROPHILS 43 % (28-66); PLATELET ESTIMATE NORMAL (NORMAL); PROMYELOCYTES 2 % (0-0)
[2022-04-15] MEDS: ACETAMINOPHEN 650MG SUPP PR PRN ×2 (08:11→14:08)
[2022-04-15] MEDS: TIOTROPIUM INHALER/CAPSULE (SPIRIVA) INH SCH (08:41)
[2022-04-15] MEDS: CEFEPIME HCL 2 GM in D5W MINI-BAG PLUS 50 ML IV SCH ×2 (10:29→21:05)
[2022-04-15] MEDS: LIDOCAINE 5% (LIDODERM) PATCH TD SCH (10:29)
[2022-04-15] MEDS: PANTOPRAZOLE 40MG TAB (PROTONIX) PO SCH (11:27)
[2022-04-15] MEDS: SENOKOT S TAB PO SCH ×2 (11:27→19:58)
[2022-04-15] MEDS: MIRALAX *UNIT DOSE* 17GM PACKET PO SCH (11:27)
[2022-04-15] MEDS: DOCUSATE SODIUM 100MG CAPSULE PO SCH ×2 (11:27→19:53)
[2022-04-15] MEDS: MIDODRINE 5 MG TAB PO SCH ×3 (11:28→15:14)
[2022-04-15] MEDS: ASPIRIN 81MG CHEW TABLET PO SCH (11:28)
[2022-04-15] MEDS: SINEMET 25-100 MG TAB PO SCH ×3 (11:28→18:27)
[2022-04-15] MEDS: ASCORBIC ACID 500 MG TAB PO SCH (11:28)
[2022-04-15] MEDS: PARoxetine 10MG TABLET PO SCH (11:29)
[2022-04-15] MEDS: NS 1,000 ML IV SCH (11:31)
[2022-04-15] MEDS: D5W/0.9% SODIUM CHLORIDE 1,000 ML IV SCH (12:48)
[2022-04-15] MEDS: PANTOPRAZOLE 40MG VIAL IV SCH (12:48)
[2022-04-15] MEDS: ACETAMINOPHEN 325MG SUPP PR PRN ×2 (18:27→21:05)
[2022-04-15] MEDS: ATORVASTATIN 20 MG TAB PO SCH (19:57)
[2022-04-15] MEDS: SINEMET**CR** 25/100 TABCR PO SCH (20:36)
[2022-04-16] VITALS (24 sets, daily range): BP systolic 96–154; BP diastolic 53–66; O2SAT 86–100
[2022-04-16] MEDS ORDERED: IPRATROPIUM 0.5MG/ALBUTEROL 2.5MG INH SOL UD 3ML (DUONEB) NEB PRN (00:20)
[2022-04-16] MEDS ORDERED: ACETAMINOPHEN 1000MG 100ML IV BAG IV ONE (01:00)
[2022-04-16] MEDS: D5W/0.9% SODIUM CHLORIDE 1,000 ML IV SCH ×2 (01:45→17:16)
[2022-04-16] MEDS ORDERED: ACETAMINOPHEN 650MG SUPP PR ONE (02:00)
[2022-04-16] MEDS: IPRATROPIUM 0.5MG/ALBUTEROL 2.5MG INH SOL UD 3ML (DUONEB) NEB SCH ×4 (02:39→19:23)
[2022-04-16] MEDS: guaiFENesin SYRUP 200MG 10ML UDC PO SCH ×4 (05:16→23:36)
[2022-04-16] MEDS: metroNIDAZOLE 500 MG in IV 1 EA IV SCH ×3 (06:11→21:59)
[2022-04-16 06:20] LABS: HEMATOCRIT 26.7 % (42.0-52.0); HEMOGLOBIN 8.6 g/dl (13.5-17.5); MEAN CORPUSCULAR HEMOGLOBIN 29.4 pg (27.0-33.0); MEAN CORPUSCULAR HGB CONC 32.2 g/dl (32.0-36.5); MEAN CORPUSCULAR VOLUME 91.1 fl (80.0-96.0); PLATELET COUNT, AUTOMATED 186 10^3/uL (150-450); RED BLOOD COUNT 2.93 10^6/uL (4.30-6.10); WHITE BLOOD COUNT 6.8 10^3/uL (4.0-10.0)
[2022-04-16 06:31] LABS: MAGNESIUM LEVEL 1.8 MG/DL (1.8-2.4)
[2022-04-16 06:41] LABS: ALBUMIN 1.9 G/DL (3.2-5.2); ALKALINE PHOSPHATASE 59 U/L (46-116); ALT/SGPT 278 U/L (7.0-40); AST/SGOT 581 U/L (<34); BILIRUBIN,TOTAL 0.7 MG/DL (0.3-1.2); BLOOD UREA NITROGEN 37 MG/DL (9-23); CALCIUM LEVEL 7.6 MG/DL (8.3-10.6); CARBON DIOXIDE LEVEL 23 MMOL/L (20-31); CHLORIDE LEVEL 114 MMOL/L (98-107); CREATININE FOR GFR 0.58 MG/DL (0.70-1.30); GLOMERULAR FILTRATION RATE > 60.0 (>35); GLUCOSE, FASTING 107 MG/DL (74-106); POTASSIUM SERUM 3.7 MMOL/L (3.5-5.1); SODIUM LEVEL 144 MMOL/L (136-145); TOTAL PROTEIN 4.5 G/DL (5.7-8.2)
[2022-04-16] MEDS: TIOTROPIUM INHALER/CAPSULE (SPIRIVA) INH SCH (07:59)
[2022-04-16] MEDS: MIDODRINE 5 MG TAB PO SCH ×3 (08:00→15:23)
[2022-04-16] MEDS: SINEMET 25-100 MG TAB PO SCH ×3 (08:00→17:44)
[2022-04-16] MEDS: ASCORBIC ACID 500 MG TAB PO SCH (09:00)
[2022-04-16] MEDS: PARoxetine 10MG TABLET PO SCH (09:00)
[2022-04-16] MEDS: DOCUSATE SODIUM 100MG CAPSULE PO SCH ×2 (09:00→20:42)
[2022-04-16] MEDS: SENOKOT S TAB PO SCH ×2 (09:00→20:42)
[2022-04-16] MEDS: MIRALAX *UNIT DOSE* 17GM PACKET PO SCH (09:00)
[2022-04-16] MEDS: LIDOCAINE 5% (LIDODERM) PATCH TD SCH (09:15)
[2022-04-16 09:42] LABS: LYMPHOCYTES 8 % (16-44); METAMYELOCYTES 1 % (0-0); MONOCYTES 3 % (0-5); MYELOCYTES 1 % (0-0); NEUTROPHILS 56 % (28-66)
[2022-04-16 09:44] LABS: ANISOCYTOSIS 1+; HYPOCHROMASIA 1+
[2022-04-16 09:45] LABS: PLATELET ESTIMATE NORMAL (NORMAL)
[2022-04-16] MEDS: CEFEPIME HCL 2 GM in D5W MINI-BAG PLUS 50 ML IV SCH ×2 (09:58→21:59)
[2022-04-16] MEDS: HEPARIN SOD (PORCINE) 5000UNITS/ML 1ML VIAL/SYRINGE SQ SCH ×2 (12:26→22:00)
[2022-04-16] MEDS: PANTOPRAZOLE 40MG VIAL IV SCH (13:31)
[2022-04-16] MEDS ORDERED: IPRATROPIUM 0.5MG/ALBUTEROL 2.5MG INH SOL UD 3ML (DUONEB) NEB SCH (14:00)
[2022-04-16] MEDS ORDERED: MAG SULF 1GM/100ML (MAG RUN) 1 GM in IV 1 EA IV ONE (20:30)
[2022-04-16] MEDS: SINEMET**CR** 25/100 TABCR PO SCH (20:42)
[2022-04-16] MEDS: ATORVASTATIN 20 MG TAB PO SCH (20:42)
[2022-04-16] MEDS: DICLOFENAC EPOLAMINE 1.3% PATCH TOP SCH (21:59)
[2022-04-16] MEDS: ACETAMINOPHEN 325MG SUPP PR PRN ×2 (22:26)
[2022-04-17] VITALS (9 sets, daily range): BP systolic 78–103; BP diastolic 50–78; O2SAT 94–97
[2022-04-17] MEDS: IPRATROPIUM 0.5MG/ALBUTEROL 2.5MG INH SOL UD 3ML (DUONEB) NEB SCH ×4 (01:35→19:49)
[2022-04-17] MEDS ORDERED: ACETAMINOPHEN 650MG SUPP PR ONE (02:00)
[2022-04-17] MEDS ORDERED: NS 500 ML IV ONE (04:40)
[2022-04-17] MEDS: MIDODRINE 5 MG TAB PO SCH (05:06)
[2022-04-17] MEDS: guaiFENesin SYRUP 200MG 10ML UDC PO SCH (05:33)
[2022-04-17 05:58] LABS: HEMATOCRIT 27.1 % (42.0-52.0); HEMOGLOBIN 8.1 g/dl (13.5-17.5); MEAN CORPUSCULAR HEMOGLOBIN 28.6 pg (27.0-33.0); MEAN CORPUSCULAR HGB CONC 29.9 g/dl (32.0-36.5); MEAN CORPUSCULAR VOLUME 95.8 fl (80.0-96.0); PLATELET COUNT, AUTOMATED 178 10^3/uL (150-450); RED BLOOD COUNT 2.83 10^6/uL (4.30-6.10); WHITE BLOOD COUNT 5.7 10^3/uL (4.0-10.0)
[2022-04-17 06:09] LABS: MAGNESIUM LEVEL 2.3 MG/DL (1.8-2.4)
[2022-04-17 06:11] LABS: ALBUMIN 1.8 G/DL (3.2-5.2); ALKALINE PHOSPHATASE 55 U/L (46-116); ALT/SGPT 366 U/L (7.0-40); AST/SGOT 678 U/L (<34); BILIRUBIN,TOTAL 0.7 MG/DL (0.3-1.2); BLOOD UREA NITROGEN 39 MG/DL (9-23); CALCIUM LEVEL 7.4 MG/DL (8.3-10.6); CARBON DIOXIDE LEVEL 24 MMOL/L (20-31); CHLORIDE LEVEL 119 MMOL/L (98-107); GLOMERULAR FILTRATION RATE > 60.0 (>35); GLUCOSE, FASTING 105 MG/DL (74-106); POTASSIUM SERUM 3.7 MMOL/L (3.5-5.1); SODIUM LEVEL 151 MMOL/L (136-145); TOTAL PROTEIN 4.4 G/DL (5.7-8.2)
[2022-04-17] MEDS: metroNIDAZOLE 500 MG in IV 1 EA IV SCH ×3 (06:28→22:42)
[2022-04-17] MEDS: D5W/0.9% SODIUM CHLORIDE 1,000 ML IV SCH (06:28)
[2022-04-17] MEDS: TIOTROPIUM INHALER/CAPSULE (SPIRIVA) INH SCH (07:04)
[2022-04-17] MEDS ORDERED: D5W/0.45% SODIUM CHLORIDE 1,000 ML IV SCH (07:35)
[2022-04-17 08:40] LABS: LYMPHOCYTES 10 % (16-44); NEUTROPHILS 78 % (28-66)
[2022-04-17 08:41] LABS: ANISOCYTOSIS 1+
[2022-04-17 08:42] LABS: HYPOCHROMASIA 2+; PLATELET ESTIMATE NORMAL (NORMAL)
[2022-04-17] MEDS ORDERED: MIRALAX *UNIT DOSE* 17GM PACKET NG SCH (09:00)
[2022-04-17] MEDS: CEFEPIME HCL 2 GM in D5W MINI-BAG PLUS 50 ML IV SCH ×2 (10:34→21:57)
[2022-04-17] MEDS: HEPARIN SOD (PORCINE) 5000UNITS/ML 1ML VIAL/SYRINGE SQ SCH (10:35)
[2022-04-17] MEDS ORDERED: KETOROLAC 30 MG/ML 1ML VIAL IV PRN (12:05)
[2022-04-17] MEDS: PANTOPRAZOLE 40MG VIAL IV SCH (15:07)
[2022-04-17] MEDS: LIDOCAINE 5% (LIDODERM) PATCH TD SCH (15:07)
[2022-04-17 15:27] LABS: BLOOD UREA NITROGEN 42 MG/DL (9-23); CALCIUM LEVEL 7.8 MG/DL (8.3-10.6); CARBON DIOXIDE LEVEL 22 MMOL/L (20-31); CHLORIDE LEVEL 119 MMOL/L (98-107); CREATININE FOR GFR 0.73 MG/DL (0.70-1.30); GLOMERULAR FILTRATION RATE > 60.0 (>35); GLUCOSE, FASTING 92 MG/DL (74-106); POTASSIUM SERUM 4.1 MMOL/L (3.5-5.1); SODIUM LEVEL 151 MMOL/L (136-145)
[2022-04-17] MEDS: D5W 1,000 ML IV SCH (16:53)
[2022-04-17] MEDS: PARoxetine 10MG 5ML SUSP ORAL SYRINGE *DRAW UP EXACT DOSE PO SCH (17:17)
[2022-04-17] MEDS: ASCORBIC ACID 500 MG TAB NG SCH (17:18)
[2022-04-17] MEDS: guaiFENesin SYRUP 200MG 10ML UDC NG SCH (17:18)
[2022-04-17] MEDS: SINEMET 25-100 MG TAB PO SCH (17:18)
[2022-04-17] MEDS: POLYVINYL ALCOHOL OPHTH SOLN 15ML (LIQUITEARS) OU PRN (17:19)
[2022-04-17] MEDS: MIDODRINE 5 MG TAB NG SCH (17:19)
[2022-04-17] MEDS: IBUPROFEN 400MG TAB NG PRN (17:19)
[2022-04-17 18:00] LABS: ACETAMINOPHEN LEVEL < 2.0 UG/ML (10.0-20.0)
[2022-04-17 19:15] LABS: HEPATITIS B SURFACE ANTIGEN NEGATIVE (NEGATIVE)
[2022-04-17 19:34] LABS: HEPATITIS C VIRUS ABY INDEX 0.1 INDEX (<0.8)
[2022-04-17 19:35] LABS: HEPATITIS B CORE ANTIBODY IGM NEGATIVE (NEGATIVE)
[2022-04-17] MEDS: DOCUSATE SOD LIQ 100MG/10ML UDC NG SCH (21:55)
[2022-04-17] MEDS: ATORVASTATIN 20 MG TAB NG SCH (21:55)
[2022-04-17] MEDS: SENOKOT S TAB NG SCH (21:56)
[2022-04-17] MEDS: DICLOFENAC EPOLAMINE 1.3% PATCH TOP SCH (21:56)
[2022-04-18] VITALS (25 sets, daily range): BP systolic 88–116; BP diastolic 48–60; O2SAT 92–98
[2022-04-18] MEDS: guaiFENesin SYRUP 200MG 10ML UDC NG SCH ×5 (00:11→23:50)
[2022-04-18] MEDS: SINEMET 25-100 MG TAB NG SCH ×2 (00:12→23:50)
[2022-04-18] MEDS: IPRATROPIUM 0.5MG/ALBUTEROL 2.5MG INH SOL UD 3ML (DUONEB) NEB SCH ×4 (01:20→19:28)
[2022-04-18 05:45] LABS: HEMATOCRIT 28.4 % (42.0-52.0); HEMOGLOBIN 8.8 g/dl (13.5-17.5); MEAN CORPUSCULAR HEMOGLOBIN 28.9 pg (27.0-33.0); MEAN CORPUSCULAR VOLUME 93.4 fl (80.0-96.0); PLATELET COUNT, AUTOMATED 209 10^3/uL (150-450); RED BLOOD COUNT 3.04 10^6/uL (4.30-6.10); WHITE BLOOD COUNT 8.3 10^3/uL (4.0-10.0)
[2022-04-18 06:09] LABS: MAGNESIUM LEVEL 2.3 MG/DL (1.8-2.4)
[2022-04-18 06:11] LABS: ALBUMIN 1.9 G/DL (3.2-5.2); ALKALINE PHOSPHATASE 57 U/L (46-116); ALT/SGPT 98 U/L (7.0-40); AST/SGOT 551 U/L (<34); BLOOD UREA NITROGEN 49 MG/DL (9-23); CALCIUM LEVEL 7.8 MG/DL (8.3-10.6); CARBON DIOXIDE LEVEL 21 MMOL/L (20-31); CHLORIDE LEVEL 120 MMOL/L (98-107); CREATININE FOR GFR 0.83 MG/DL (0.70-1.30); GLOMERULAR FILTRATION RATE > 60.0 (>35); GLUCOSE, FASTING 91 MG/DL (74-106); POTASSIUM SERUM 4.1 MMOL/L (3.5-5.1); SODIUM LEVEL 151 MMOL/L (136-145); TOTAL PROTEIN 4.6 G/DL (5.7-8.2)
[2022-04-18] MEDS: SINEMET 25-100 MG TAB PO SCH ×3 (06:34→16:55)
[2022-04-18] MEDS: metroNIDAZOLE 500 MG in IV 1 EA IV SCH ×3 (06:35→22:53)
[2022-04-18 06:54] LABS: BASOPHILS 1 % (0-1); LYMPHOCYTES 12 % (16-44); METAMYELOCYTES 5 % (0-0); MYELOCYTES 5 % (0-0); NEUTROPHILS 66 % (28-66); PLATELET ESTIMATE NORMAL (NORMAL)
[2022-04-18 06:55] LABS: ANISOCYTOSIS 1+
[2022-04-18] MEDS: TIOTROPIUM INHALER/CAPSULE (SPIRIVA) INH SCH (07:20)
[2022-04-18] MEDS: SENOKOT S TAB NG SCH ×2 (09:00→22:08)
[2022-04-18] MEDS: DOCUSATE SOD LIQ 100MG/10ML UDC NG SCH ×2 (09:00→22:08)
[2022-04-18] MEDS: MIRALAX *UNIT DOSE* 17GM PACKET NG SCH (09:00)
[2022-04-18] MEDS: MIDODRINE 5 MG TAB NG SCH ×3 (09:32→16:55)
[2022-04-18] MEDS: ASCORBIC ACID 500 MG TAB NG SCH (09:32)
[2022-04-18] MEDS: CEFEPIME HCL 2 GM in D5W MINI-BAG PLUS 50 ML IV SCH ×2 (09:33→22:07)
[2022-04-18] MEDS: LIDOCAINE 5% (LIDODERM) PATCH TD SCH (09:33)
[2022-04-18] MEDS: PARoxetine 10MG 5ML SUSP ORAL SYRINGE *DRAW UP EXACT DOSE PO SCH (09:33)
[2022-04-18] MEDS: D5W 1,000 ML IV SCH ×2 (11:22→21:15)
[2022-04-18] MEDS: PANTOPRAZOLE 40MG VIAL IV SCH (12:42)
[2022-04-18] MEDS: ATORVASTATIN 20 MG TAB NG SCH (22:08)
[2022-04-18] MEDS: DICLOFENAC EPOLAMINE 1.3% PATCH TOP SCH (22:08)
[2022-04-19] VITALS (17 sets, daily range): BP systolic 68–100; BP diastolic 40–60; O2SAT 91–96
[2022-04-19] MEDS: IPRATROPIUM 0.5MG/ALBUTEROL 2.5MG INH SOL UD 3ML (DUONEB) NEB SCH ×4 (01:33→19:58)
[2022-04-19 04:59] LABS: HEMATOCRIT 27.5 % (42.0-52.0); HEMOGLOBIN 8.4 g/dl (13.5-17.5); MEAN CORPUSCULAR HEMOGLOBIN 28.6 pg (27.0-33.0); MEAN CORPUSCULAR HGB CONC 30.5 g/dl (32.0-36.5); MEAN CORPUSCULAR VOLUME 93.5 fl (80.0-96.0); PLATELET COUNT, AUTOMATED 197 10^3/uL (150-450); RED BLOOD COUNT 2.94 10^6/uL (4.30-6.10); WHITE BLOOD COUNT 5.7 10^3/uL (4.0-10.0)
[2022-04-19 05:27] LABS: MAGNESIUM LEVEL 2.3 MG/DL (1.8-2.4)
[2022-04-19 05:29] LABS: ALBUMIN 1.8 G/DL (3.2-5.2); ALKALINE PHOSPHATASE 53 U/L (46-116); ALT/SGPT 75 U/L (7.0-40); AST/SGOT 384 U/L (<34); BILIRUBIN,TOTAL 0.8 MG/DL (0.3-1.2); BLOOD UREA NITROGEN 50 MG/DL (9-23); CALCIUM LEVEL 7.5 MG/DL (8.3-10.6); CARBON DIOXIDE LEVEL 22 MMOL/L (20-31); CHLORIDE LEVEL 119 MMOL/L (98-107); CREATININE FOR GFR 0.86 MG/DL (0.70-1.30); GLOMERULAR FILTRATION RATE > 60.0 (>35); GLUCOSE, FASTING 119 MG/DL (74-106); POTASSIUM SERUM 4.4 MMOL/L (3.5-5.1); SODIUM LEVEL 149 MMOL/L (136-145); TOTAL PROTEIN 4.4 G/DL (5.7-8.2)
[2022-04-19 06:00] LABS: ATYPICAL LYMPH 5 % (0-5); EOSINOPHILS 3 % (0-3); LYMPHOCYTES 14 % (16-44); MONOCYTES 9 % (0-5); NEUTROPHILS 60 % (28-66)
[2022-04-19 06:02] LABS: BURR CELLS 1+; POIKILOCYTOSIS 2+
[2022-04-19 06:03] LABS: HYPOCHROMASIA 2+
[2022-04-19 06:04] LABS: ANISOCYTOSIS 1+; TEAR DROP CELLS 1+
[2022-04-19 06:05] LABS: MICROCYTOSIS 1+; OVALOCYTES 1+
[2022-04-19] MEDS: metroNIDAZOLE 500 MG in IV 1 EA IV SCH (06:12)
[2022-04-19] MEDS: D5W 1,000 ML IV SCH (06:12)
[2022-04-19] MEDS: SINEMET 25-100 MG TAB PO SCH (06:12)
[2022-04-19] MEDS: guaiFENesin SYRUP 200MG 10ML UDC NG SCH ×2 (06:12→12:00)
[2022-04-19 06:17] LABS: PLATELET ESTIMATE NORMAL (NORMAL)
[2022-04-19] MEDS: IBUPROFEN 400MG TAB NG PRN (08:31)
[2022-04-19] MEDS: MIDODRINE 5 MG TAB NG SCH (08:31)
[2022-04-19] MEDS: TIOTROPIUM INHALER/CAPSULE (SPIRIVA) INH SCH (08:41)
[2022-04-19] MEDS ORDERED: CEFEPIME HCL 2 GM in D5W MINI-BAG PLUS 50 ML IV SCH (10:00)
[2022-04-19] MEDS: MIRALAX *UNIT DOSE* 17GM PACKET NG SCH (10:20)
[2022-04-19] MEDS: DOCUSATE SOD LIQ 100MG/10ML UDC NG SCH (10:20)
[2022-04-19] MEDS: SENOKOT S TAB NG SCH (10:20)
[2022-04-19] MEDS: PARoxetine 10MG 5ML SUSP ORAL SYRINGE *DRAW UP EXACT DOSE PO SCH (10:20)
[2022-04-19] MEDS: LIDOCAINE 5% (LIDODERM) PATCH TD SCH (10:21)
[2022-04-19] MEDS: ASCORBIC ACID 500 MG TAB NG SCH (10:21)
[2022-04-19] MEDS ORDERED: NS 500 ML IV ONE ×2 (10:45→13:00)
[2022-04-19] MEDS ORDERED: NS 1,000 ML IV ONE (11:30)
[2022-04-19] MEDS ORDERED: HYDROCORTISONE 100MG/2ML VIAL IV ONE (11:40)
[2022-04-19 12:46] LABS: BASO % 0.5 % (0.0-1.0); EOS % 0.7 % (0.0-3.0); HEMATOCRIT 24.3 % (42.0-52.0); HEMOGLOBIN 7.3 g/dl (13.5-17.5); LYMPH # 0.9 10^3/uL (1.5-5.0); LYMPH % 20.8 % (24.0-44.0); MEAN CORPUSCULAR HEMOGLOBIN 28.7 pg (27.0-33.0); MEAN CORPUSCULAR VOLUME 95.7 fl (80.0-96.0); MONO # 0.3 10^3/uL (0.0-0.8); MONO % 6.9 % (2.0-8.0); NEUTROPHILS # 2.5 10^3/uL (1.5-8.5); NEUTROPHILS % 60.6 % (36.0-66.0); PLATELET COUNT, AUTOMATED 178 10^3/uL (150-450); RED BLOOD COUNT 2.54 10^6/uL (4.30-6.10); WHITE BLOOD COUNT 4.2 10^3/uL (4.0-10.0)
[2022-04-19 13:04] LABS: BLOOD UREA NITROGEN 48 MG/DL (9-23); CALCIUM LEVEL 7.1 MG/DL (8.3-10.6); CARBON DIOXIDE LEVEL 22 MMOL/L (20-31); CHLORIDE LEVEL 120 MMOL/L (98-107); CREATININE FOR GFR 0.88 MG/DL (0.70-1.30); GLOMERULAR FILTRATION RATE > 60.0 (>35); GLUCOSE, FASTING 98 MG/DL (74-106); POTASSIUM SERUM 4.4 MMOL/L (3.5-5.1); SODIUM LEVEL 151 MMOL/L (136-145)
[2022-04-19] MEDS ORDERED: metroNIDAZOLE 500 MG in IV 1 EA IV SCH (14:00)
[2022-04-19] MEDS ORDERED: SCOPOLAMINE 1MG TRANSDERMAL PATCH TOP PRN (14:00)
[2022-04-19] MEDS ORDERED: ONDANSETRON 4MG 2ML VIAL IV PRN (14:00)
[2022-04-19] MEDS ORDERED: ACETAMINOPHEN TAB 650MG DOSE (2X325MG) PO PRN (14:00)
[2022-04-19] MEDS ORDERED: BISACODYL 10MG SUPP PR PRN (14:00)
[2022-04-19] MEDS ORDERED: LORazepam 1 MG TAB PO PRN (14:00)
[2022-04-19] MEDS ORDERED: VANCOMYCIN HCL 750 MG, VIAL MATE ADAPTER 1 EACH in D5W 250 ML IV ONE ×2 (15:00→16:00)
[2022-04-19] MEDS: MORPHINE 2 MG/ML 1ML VIAL IV PRN ×4 (15:22→22:31)
[2022-04-19] MEDS: LORazepam 2 MG/ML VIAL IV PRN ×4 (15:36→22:31)
[2022-04-19] MEDS: DICLOFENAC EPOLAMINE 1.3% PATCH TOP SCH (21:00)
[2022-04-20] MEDS: MORPHINE 2 MG/ML 1ML VIAL IV PRN ×11 (00:42→22:47)
[2022-04-20] MEDS: LORazepam 2 MG/ML VIAL IV PRN ×11 (00:42→22:47)
[2022-04-20] MEDS: IPRATROPIUM 0.5MG/ALBUTEROL 2.5MG INH SOL UD 3ML (DUONEB) NEB SCH ×4 (02:00→19:43)
[2022-04-20] MEDS ORDERED: VANCOMYCIN HCL 1,000 MG, VIAL MATE ADAPTER 1 EACH in NS 250 ML IV SCH (09:00)
[2022-04-20] MEDS: LIDOCAINE 5% (LIDODERM) PATCH TD SCH (09:31)
[2022-04-20] MEDS: DICLOFENAC EPOLAMINE 1.3% PATCH TOP SCH (20:37)
[2022-04-21] MEDS: IPRATROPIUM 0.5MG/ALBUTEROL 2.5MG INH SOL UD 3ML (DUONEB) NEB SCH ×4 (00:22→19:54)
[2022-04-21] MEDS: MORPHINE 2 MG/ML 1ML VIAL IV PRN ×8 (01:08→16:45)
[2022-04-21] MEDS: LORazepam 2 MG/ML VIAL IV PRN ×9 (01:08→19:42)
[2022-04-21] MEDS: LIDOCAINE 5% (LIDODERM) PATCH TD SCH (10:03)
[2022-04-21] MEDS: MORPHINE 10MG/0.5ML ORAL CONCENTRATE SOLUTION U/D SL PRN ×3 (14:29→19:44)
[2022-04-21] MEDS ORDERED: MORPHINE 4 MG/ML 1ML VIAL IV PRN (18:00)
== END 2022-04-21 22:19 | disposition expired | DRG 521 ==
LOC: M ED 19:41 → M ED INP 22:57 → M MSPAV 04-04 01:53 → M PCU 04-14 20:32
PROVIDERS: ADMIT Internal Medicine; ATTEND Family Medicine
PROC: 0SRR0J9 Replacement of Right Hip Joint, Femoral Surface with Synthetic Substitute, Cemented, Open Approach (ICD-10-PCS; principal; 2022-04-04 15:30)
DX: S72.031A Displaced midcervical fracture of right femur, initial encounter for closed fracture (principal); J69.0 Pneumonitis due to inhalation of food and vomit; J96.01 Acute respiratory failure with hypoxia; A41.9 Sepsis, unspecified organism; J44.1 Chronic obstructive pulmonary disease with (acute) exacerbation; E87.0 Hyperosmolality and hypernatremia; N17.9 Acute kidney failure, unspecified; E46 Unspecified protein-calorie malnutrition; Z66 Do not resuscitate; G20 Parkinson's disease; R13.10 Dysphagia, unspecified; T48.4X5A Adverse effect of expectorants, initial encounter; R74.01 Elevation of levels of liver transaminase levels; E83.51 Hypocalcemia; D72.829 Elevated white blood cell count, unspecified; K59.00 Constipation, unspecified; K21.9 Gastro-esophageal reflux disease without esophagitis; I95.1 Orthostatic hypotension; F32.A Depression, unspecified; I10 Essential (primary) hypertension; R29.6 Repeated falls; D50.9 Iron deficiency anemia, unspecified; E78.5 Hyperlipidemia, unspecified; G31.84 Mild cognitive impairment of uncertain or unknown etiology; N28.1 Cyst of kidney, acquired; Z79.82 Long term (current) use of aspirin; Z79.899 Other long term (current) drug therapy; Z88.0 Allergy status to penicillin; Z20.822 Contact with and (suspected) exposure to COVID-19; W01.0XXA Fall on same level from slipping, tripping and stumbling without subsequent striking against object, initial encounter; S30.0XXA Contusion of lower back and pelvis, initial encounter; W07.XXXA Fall from chair, initial encounter; Y92.230 Patient room in hospital as the place of occurrence of the external cause; Z87.891 Personal history of nicotine dependence